=== PATIENT | male | born 1975 | race Caucasian/White ===

== ENCOUNTER 2017-10-09 21:58 | Emergency (ER) | payer MEDICAID ==
[2017-10-09 22:03] VITALS: BP 138/68
--- NOTE | 2017-10-09 22:12 | EDPHY ---
H & P Stated Complaint: alcohol w/d, last drink 10am hx of sx Time Seen by Provider: 10/09/17 22:12 HPI/ROS: HPI CHIEF COMPLAINT: Alcohol withdraw. HISTORY OF PRESENT ILLNESS: Patient is a 42-year-old male, he is an alcoholic and homeless, drinks alcohol daily, he presents to the emergency room stating that his last drink was around 10:00 a.m. And feels like he is going to alcohol withdrawal. He would like to go to detox. He denies any chest pain or shortness of breath. He does state he feels anxious. Typically drinks a 5th of liquor per day. Past Medical History: Alcoholism, homelessness Past Surgical History: No recent surgery Social History: Daily alcohol use. Homeless. Family History: Noncontributory ROS REVIEW OF SYSTEMS: A comprehensive 10 point review of systems is otherwise negative aside from elements mentioned in the history of present illness. Exam Constitutional appears well nontoxic no acute distress, triage nursing summary reviewed, vital signs reviewed, awake/alert. Vital signs stable. Not overtly hypertensive or tachycardic. Eyes normal conjunctivae and sclera, EOMI, PERRLA. HENT normal inspection, atraumatic, moist mucus membranes, no epistaxis, neck supple/ no meningismus, no raccoon eyes. Respiratory clear to auscultation bilaterally, normal breath sounds, no respiratory distress, no wheezing. Cardiovascular rate normal, regular rhythm, no murmur, no edema, distal pulses normal. Gastrointestinal soft, non-tender, no rebound, no guarding, normal bowel sounds, no distension, no pulsatile mass. Genitourinary no CVA tenderness. Musculoskeletal no midline vertebral tenderness, full range of motion, no calf swelling, no tenderness of extremities, no meningismus, good pulses, neurovascularly intact. Skin pink, warm, & dry, no rash, skin atraumatic. Neurologic no significant tremors on exam. awake, alert and oriented x 3, AAOx3, moves all 4 extremities equally, motor intact, sensory intact, CN II-XII intact, normal cerebellar, normal vision, normal speech. Psychiatric normal mood/affect. Heme/Lymph/Immune no lymphadenopathy. Differential Diagnosis: Includes but is not limited to in a particular order acute alcohol withdrawal, alcoholism, dehydration, electrolyte disturbance, anxiety Medical Decision Making: Plan for this patient will give 50 mg p. O. Librium. Additionally take-home pack of Librium. He can be dispositioned to the [facility]. Re-evaluation: 2218: Patient comfortable with this plan. Disposition to the [facility]. Source: Patient - Personal History Current Tetanus/Diphtheria Vaccine: Yes - Medical/Surgical History Hx Asthma: No Hx Chronic Respiratory Disease: No Hx Diabetes: No Hx Cardiac Disease: No Hx Renal Disease: No Hx Cirrhosis: No Hx Alcoholism: Yes Hx HIV/AIDS: No Hx Splenectomy or Spleen Trauma: No Other PMH: alc w/d seizures - Social History Smoking Status: Heavy smoker Constitutional: Initial Vital Signs Temperature (C) 36.4 C 10/09/17 21:59 Heart Rate 79 10/09/17 21:59 Respiratory Rate 16 10/09/17 21:59 Blood Pressure 138/68 H 10/09/17 21:59 O2 Sat (%) 96 10/09/17 21:59 O2 Delivery Mode Room Air Allergies/Adverse Reactions: No Known Allergies Allergy (Unverified 10/09/17 22:02) Home Medications: Medication Instructions Recorded NK [No Known Home Meds] 10/09/17 Departure - Departure Disposition: Home, Routine, Self-Care Clinical Impression: Alcohol withdrawal Qualifiers: Complication of substance-induced condition: uncomplicated Qualified Code(s): F10.230 - Alcohol dependence with withdrawal, uncomplicated Condition: Good Instructions: Alcohol Withdrawal (ED), Chlordiazepoxide/Clidinium (By mouth) Referrals: NONE *PRIMARY CARE P,. [Primary Care Provider] - As per Instructions
[2017-10-09] MEDS ORDERED: CHLORDIAZEPOXIDE 25MG PREPK#6 BTL TAKEHOME ONE (22:15)
[2017-10-09] MEDS ORDERED: chlordiazePOXIDE 25 MG CAP PO ONE (22:15)
== END 2017-10-09 22:51 | disposition home or self-care (01) ==
DX: F10.230 Alcohol dependence with withdrawal, uncomplicated (principal); F17.200 Nicotine dependence, unspecified, uncomplicated